=== PATIENT | male | born 1985 | race African-American/Black ===

== ENCOUNTER 2019-11-26 00:40 | Emergency (ER) | payer OTHER ==
[~2019-11-26] VITALS: Ht 182.9 cm; Wt 90.7 kg
[2019-11-26] MEDS ORDERED: LORAZEPAM INJ 2 MG/ML VIAL ONE (00:45)
[2019-11-26] MEDS ORDERED: OLANZAPINE 10 MG VIAL IM ONE (00:45)
--- NOTE | 2019-11-26 00:50 | NUR ---
PATIENT BIB [facility] TO ER BED 10 C/O "I SEE DOGS." PER [facility], PATIENT TOOK METH. PATIENT DENIES SUICIDAL IDEATION, NOR HOMICIDAL IDEATION. AAOX3. NO SOB. BREATHING EVENLY AND UNLABORED ON ROOM AIR. Addendum: 11/26/19 at 0100 by DIAN PATIENT ADMITS TO SNORTING METH 2x DAYS AGO.
[2019-11-26] MEDS: OLANZAPINE 10 MG VIAL IM ONE (01:10)
[2019-11-26] MEDS: LORAZEPAM INJ 2 MG/ML VIAL IV ONE (01:10)
--- NOTE | 2019-11-26 01:53 | NUR ---
urine collected and sent to lab.
[2019-11-26 05:45] VITALS: BP 112/60
--- NOTE | 2019-11-26 05:45 | NUR ---
Patient discharged to home in stable condition. Written and verbal after care instructions given. Patient verbalizes understanding of instruction.
--- NOTE | 2019-11-26 05:45 | NUR ---
PATIENT DENIES VISUAL OR AUDITORY HALLUCINATION. AMBULATORY WITH STEADY GAIT. PROVIDED WITH FOOD.
== END 2019-11-26 05:46 | disposition home or self-care (01) ==
LOC: ER 00:43
DX: F15.10 Other stimulant abuse, uncomplicated (principal); R44.3 Hallucinations, unspecified; R45.1 Restlessness and agitation; Z60.2 Problems related to living alone
CPT/HCPCS: 96372 ×2; 99284; J2060; J3490

== ENCOUNTER 2019-11-26 19:03 | Emergency (ER) | payer OTHER ==
[~2019-11-26] VITALS: Ht 182.9 cm; Wt 90.7 kg
[2019-11-26] MEDS ORDERED: LORAZEPAM INJ 2 MG/ML VIAL ONE ×2 (19:31→21:29)
[2019-11-26] MEDS ORDERED: OLANZAPINE 5 MG TABLET ONE (19:31)
--- NOTE | 2019-11-26 19:40 | NUR ---
PATIENT CAME TO ER BED 14 C/O "I AM HEARING VOICES". PATIENT ADMITS TO SNORTING METH EARLIER TODAY. AAOX3. NO SOB. BREATHING EVENLY AND UNLABORED ON ROOM AIR. CONNECTED TO MONITOR.
[2019-11-26] MEDS: IV NS 0.9% 1,000 ML BAG IV ONE (19:44)
[2019-11-26] MEDS: OLANZAPINE 5 MG TABLET PO ONE (19:44)
[2019-11-26] MEDS: LORAZEPAM INJ 2 MG/ML VIAL IVP ONE (19:44)
[2019-11-26] MEDS ORDERED: HALOPERIDOL 5 MG TABLET ONE ×2 (19:55→22:30)
[2019-11-26] MEDS ORDERED: HALOPERIDOL 1 MG TABLET PO ONE (20:00)
[2019-11-26] MEDS: HALOPERIDOL 1 MG TABLET PO ONE ×2 (20:19→22:36)
--- NOTE | 2019-11-26 21:02 | NUR ---
Note kalani in EDM - 11/26/19 at 2102 by DIAN PATIENT CAME TO ER BED 14 C/O "I AM HEARING VOICES". PATIENT ADMITS TO SNORTING METH EARLIER TODAY. AAOX3. NO SOB. BREATHING EVENLY AND UNLABORED ON ROOM AIR. CONNECTED TO MONITOR.
[2019-11-26] MEDS: LORAZEPAM INJ 2 MG/ML VIAL IV ONE (21:34)
[2019-11-26] MEDS ORDERED: diphenhydrAMINE HCL 50 MG/ML VIAL ONE (22:30)
[2019-11-26] MEDS: diphenhydrAMINE HCL 50 MG/ML VIAL IV ONE (22:36)
--- NOTE | 2019-11-27 03:31 | NUR ---
PATIENT IS AMBULATORY WITH A STEADY GAIT TO THE RESTROOM.
--- NOTE | 2019-11-27 04:20 | NUR ---
PATIENT PULLED OUT IV. GAUZE PLACED ON SITE WITH PRESSURE.
--- NOTE | 2019-11-27 07:05 | NUR ---
Patient discharged to home in stable condition. Written and verbal after care instructions given. Patient verbalizes understanding of instruction.
[2019-11-27 07:06] VITALS: BP 133/88
== END 2019-11-27 07:07 | disposition home or self-care (01) ==
LOC: ER 19:06
DX: F19.10 Other psychoactive substance abuse, uncomplicated (principal); F20.9 Schizophrenia, unspecified; F31.9 Bipolar disorder, unspecified; F29 Unspecified psychosis not due to a substance or known physiological condition; F22 Delusional disorders; Z59.0 Homelessness
CPT/HCPCS: 96374; 96375; 96376; 99284; J1200; J2060 ×2; J7030

== ENCOUNTER 2020-02-04 21:18 | Emergency (ER) | payer OTHER ==
[~2020-02-04] VITALS: Ht 182.9 cm; Wt 90.7 kg
--- NOTE | 2020-02-04 21:20 | NUR ---
PT CAME TO THE ED C/O PANIC ATTACK S/P TAKING METH TODAY. PT STATES " I GOT SO HIGH AFTER I TOOK IT." PT AAOX4, VSS, RESPIRATIONS EVEN AND UNLABORED ON RA W/ NAD NOTED. PT CONNECTED TO THE MONITOR AND POX.
[2020-02-04] MEDS ORDERED: LORAZEPAM 1 MG TABLET ONE (21:40)
--- NOTE | 2020-02-04 21:43 | NUR ---
EKG AT BEDSIDE
[2020-02-04] MEDS ORDERED: LORAZEPAM 1 MG TABLET PO ONE (22:00)
--- NOTE | 2020-02-05 01:26 | NUR ---
PT RESTING COMFORTABLY IN BED. NAD NOTED. VSS. CALL LIGHT WITHIN REACH.
--- NOTE | 2020-02-05 03:28 | NUR ---
PT ASLEEP IN BED. NAD NOTED. PT CONNECTED TO THE MONITOR AND POX. SITTER AT BEDSIDE FOR SAFETY
--- NOTE | 2020-02-05 05:20 | NUR ---
PT RESTING COMFORTABLY IN BED. NAD NOTED. VSS. CALL LIGHT WITHIN REACH. SITTER AT BEDSIDE FOR SAFETY
[2020-02-05 07:09] VITALS: BP 138/59
--- NOTE | 2020-02-05 07:09 | NUR ---
Patient discharged to home in stable condition. Written and verbal after care instructions given. Patient verbalizes understanding of instruction.pt. ambulatory with a steady gait. Tap card given.
== END 2020-02-05 07:10 | disposition home or self-care (01) ==
LOC: ER 21:21
DX: F15.90 Other stimulant use, unspecified, uncomplicated (principal); F41.9 Anxiety disorder, unspecified; F29 Unspecified psychosis not due to a substance or known physiological condition; R00.0 Tachycardia, unspecified; F20.9 Schizophrenia, unspecified; F31.9 Bipolar disorder, unspecified; Z91.010 Allergy to peanuts; Z59.0 Homelessness

== ENCOUNTER 2021-03-05 05:37 | Emergency (ER) | payer OTHER ==
[~2021-03-05] VITALS: Ht 182.9 cm; Wt 81.6 kg
--- NOTE | 2021-03-05 05:47 | NUR ---
SAWYER FROM OUTSIDE OF [employer] STATION FOR C/O PSYCHOSIS, HEARING VOICES AND ANXIETY S/P METH USE. PT ALERT, OX4, DENIED SI, HI. NO C/O PAIN OR DISCOMFORT. NO CP. WAS PLACED IN BED 12 ON MONITOR. VSS. WILL CONT TO MONITOR ,
[2021-03-05 06:52] VITALS: BP 142/91
== END 2021-03-05 06:53 | disposition home or self-care (01) ==
LOC: ER 05:38
DX: F15.10 Other stimulant abuse, uncomplicated (principal); F20.9 Schizophrenia, unspecified; F31.9 Bipolar disorder, unspecified; Z91.010 Allergy to peanuts